=== PATIENT | female | born 1990 ===

== ENCOUNTER 2019-05-05 00:06 | Emergency (ER) | payer OTHER ==
--- NOTE | 2019-05-05 00:24 | ED ---
Influenza-Like Illness - HPI Summary HPI Summary: 28-year-old female with no significant past history presents to the emergency department today complaining of nausea, vomiting, diarrhea and flulike symptoms. Patient states for the last week she has had nasal congestion and a sore throat. Patient believes she currently has food poisoning as she felt fine prior to dinner and then awoke this evening with nausea, vomiting, diarrhea. Patient states she has had bouts of emesis and diarrhea once every 2 hours. Patient states she recently returned from a trip from [place] yesterday. Patient felt fine yesterday and her symptoms the evening after dinner. Patient denies fever, chest pain, shortness of breath, rash. Surgical history is noncontributory. - History of Current Complaint Chief Complaint: EDNauseaVomitDiarrh Time Seen by Provider: 05/05/19 00:23 Hx Obtained From: Patient Onset/Duration: Sudden Onset, Lasting Hours Severity: Severe Associated Signs & Symptoms: Vomiting, Diarrhea - Allergy/Home Medications Allergies/Adverse Reactions: Allergies Allergy/AdvReac Type Severity Reaction Status Date / Time No Known Allergies Allergy Verified 05/05/19 00:09 PMH/Surg Hx/FS Hx/Imm Hx Infectious Disease History: No Infectious Disease History: Reports: Traveled Outside the [place] in Last 30 Days - Social History Alcohol Use: None Substance Use Type: Reports: None Smoking Status (MU): Never Smoked Tobacco Review of Systems Constitutional: Negative Eyes: Negative ENT: Negative Cardiovascular: Negative Respiratory: Negative Positive: Abdominal Pain, Vomiting, Diarrhea, Nausea Genitourinary: Negative Musculoskeletal: Negative Skin: Negative Neurological: Negative Positive: Anxious. Negative: Depressed All Other Systems Reviewed And Are Negative: Yes Physical Exam - Summary Physical Exam Summary: No masses or ecchymosis of the abdomen. BS normoactive. Palpation reveals diffuse mild tenderness. No rebound tenderness or rigidity. Negative mcburneys, psoas, rovsings sign. Triage Information Reviewed: Yes Vital Signs On Initial Exam: Initial Vitals Temp Pulse Resp BP Pulse Ox 98.8 F 107 18 130/92 100 05/05/19 00:07 05/05/19 00:07 05/05/19 00:07 05/05/19 00:07 05/05/19 00:07 Vital Signs Reviewed: Yes Appearance: Positive: Well-Appearing, No Pain Distress, Well-Nourished Skin: Positive: Warm, Skin Color Reflects Adequate Perfusion Eyes: Positive: EOMI, MARY ANN ENT: Positive: Hearing grossly normal Respiratory/Lung Sounds: Positive: Clear to Auscultation, Breath Sounds Present Cardiovascular: Positive: RRR, S1, S2 Abdomen Description: Positive: Soft. Negative: Distended, Guarding Bowel Sounds: Positive: Present Musculoskeletal: Positive: Strength/ROM Intact Neurological: Positive: Sensory/Motor Intact, Alert, Oriented to Person Place, Time, Normal Gait, Facial Symmetry, Speech Normal Psychiatric: Positive: Normal, Anxious AVPU Assessment: Alert Procedures - Sedation Patient Received Moderate/Deep Sedation with Procedure: No Diagnostics - Vital Signs Vital Signs Temp Pulse Resp BP Pulse Ox 05/05/19 00:07 98.8 F 107 18 130/92 100 - Laboratory Result Diagrams: 05/05/19 00:51 05/05/19 00:51 Lab Statement: Any lab studies that have been ordered have been reviewed, and results considered in the medical decision making process. Flu Symptom Course/Dx - Course Course Of Treatment: pt evaluated for abdominal pain, nausea, vomiting, diarrhea. Vitals noted, pt afebrile. PT given 2L normal saline for fluid replacment and 4mg zofran. Labs returned showing no leukocytosis with WBC 7.6, mildly elevated CRP at 8.20. PT appears mildly dehydrated as she is hemeconcentrated. negatvie influenza, pt mildly mypomagnesemic at 1.7 secondary to emesis/diarrhea/ CT imaging was deemed unneeded as the risks outweighed the benefits at this time. Stool sampling was considered for possible infectious diarrhea such as vibrio or rotavirus but deemed unneeded as pt was afebrile and improving. PT DC with RX for zofran and outpatient followup. ABX not needed. - Diagnoses Differential Diagnosis/HQI/PQRI: Positive: Influenza, Other - virus, foodborne illness, travelers diarrhea Provider Diagnoses: Gastroenteritis Discharge ED - Sign-Out/Discharge Documenting (check all that apply): Patient Departure - Discharge Plan Condition: Stable Disposition: HOME Prescriptions: Ondansetron ODT TAB* [Zofran 4 MG Odt TAB*] 4 mg PO Q6H PRN #12 tab.odt PRN Reason: Nausea Patient Education Materials: Gastroenteritis (ED) Referrals: Campos Frances MD [Primary Care Provider] - 3 Days Additional Instructions: You were seen in the emergency department today for abdominal pain. There is no evidence that your symptoms are due to a life-threatening or infectious process requiring intervention at this time. 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 Please return to the emergency department immediately if you develop any new or worsening symptoms. Please take zofran every 6 hours as needed for nausea - Billing Disposition and Condition Condition: STABLE Disposition: Home
[2019-05-05] MEDS ORDERED: NS 0.9% 1000 ML** 2,000 ML IV ONE (00:31)
[2019-05-05] MEDS ORDERED: Ondansetron INJ* 2 MG/ML VIAL IV ONE (00:35)
[2019-05-05 00:57] LABS: ABS Lymphocytes 0.4 10^3/ul (1.0-4.8); ABS Monocytes 0.4 10^3/ul (0-0.8); ABS Neutrophils 6.7 10^3/ul (1.5-7.7); Eosinophil % 0.4 %; Hematocrit 46 % (35-47); Hemoglobin 16.1 g/dL (12.0-16.0); Lymphocyte % 5.5 %; Mean Corpuscular HGB Conc 35 g/dL (31-36); Mean Corpuscular Hemoglobin 33 pg (27-31); Mean Corpuscular Volume 93 fL (80-97); Mean Platelet Volume 8.8 fL (7.4-10.4); Platelet Count 175 10^3/uL (150-450); Red Blood Count 4.91 10^6 /uL (3.70-4.87); Red Cell Distribution Width 13 % (10-15); White Blood Count 7.6 10^3/uL (3.5-10.8)
[2019-05-05 01:20] LABS: Albumin 4.5 g/dL (3.2-5.2); Albumin/Globulin Ratio 1.4 (1-3); BUN/Creatinine Ratio 17.9 (8-20); C Reactive Protein 8.2 mg/L (<8.01); EGFR Non-African American 89.3 (>60); Globulin 3.2 g/dL (2-4); Magnesium 1.7 mg/dL (1.9-2.7); Potassium 3.5 mmol/L (3.5-5.0); Total Bilirubin 0.9 mg/dL (0.2-1.0); Total Protein 7.7 g/dL (6.4-8.9)
[2019-05-05 01:22] LABS: Influenza A Molecular NEGATIVE (Negative); Influenza B Molecular NEGATIVE (Negative)
[2019-05-05 02:42] VITALS: BP 114/74
== END 2019-05-05 02:50 | disposition home or self-care (01) ==
LOC: ED 00:06
DX: K52.9 Noninfective gastroenteritis and colitis, unspecified (principal)
CPT/HCPCS: 36415; 80053; 83605; 83690; 83735; 85025; 86140; 96361; 96374; 99283; J2405